=== PATIENT | female | born 2000 | race Caucasian/White ===

== ENCOUNTER → 2024-06-14 06:52 | Outpatient (REF) | payer OTHER, SELFPAY | LOC: RAD 06:52 | PROVIDERS: ATTENDING PHYSICIAN Nurse Practitioner Family | DX: R74.01 Elevation of levels of liver transaminase levels (principal) | CPT/HCPCS: 76700 ==

== ENCOUNTER 2024-12-12 12:47 | Emergency (ER) | payer OTHER, SELFPAY ==
[2024-12-12 12:49] VITALS: BP 141/99
--- NOTE | 2024-12-12 13:14 | ED.GENMED ---
History of Present Illness
General
Chief Complaint: Skin Problem
Source: patient
Exam Limitations: none
Time Seen by Provider: 12/12/24 13:02
History of Present Illness
History of Present Illness:
24-year-old female bit by a guinea pig to her right index finger yesterday afternoon about 3 PM. Went to urgent care. Started Augmentin x 2. Recheck today with concern for tenosynovitis. 2 doses of Augmentin. Last tetanus unknown
Past History
Past History
ED Past Medical History: Psychiatric (Anxiety)
Social History
Tobacco: Non-smoker
Alcohol: None
Drug: None
Review of Systems
Review of Systems
All Other Systems: Not applicable
Constitutional: Denies fever
Phy Exam
Physical Exam
Physical Exam:
General: Nontoxic appearing in no distress
Skin: Warm and dry, no rash
Neuro: Alert, nontoxic, grossly nonfocal
Psychiatric: Good eye contact and appropriate
Musculoskeletal: Puncture wound to the right index finger at the middle phalanx. Mild swelling. Mild erythema towards the proximal phalanx on the volar aspect. Pain with flexion and extension. Dorsally the finger however appears well.
Course
Orders/Labs/Results
Orders:
Orders
12/12/24 13:13
Tetanus/Diphth/Acelpertussis [Adacel] 0.5 ml IM .ONCE ONE
Finger(s)/Thumb 2 View Rt [CR Finger(s)/thumb Min 2 Vw Rt] Urgent
Comment:
Reason For Exam: Right index finger bite
12/12/24 13:21
Ampicillin/Sulbactam 3 G [Unasyn] 3 gm 0.9% Sodium Chloride 100 ml [Nss] 100 ml IV NOW
12/12/24 13:52
Aluminium Finger Splint Right ONCE
Vital Signs
Initial and Last Documented VS:
Initial Vital Signs
Temp Pulse Resp BP Pulse Ox
98.1 F 105 16 141/99 100
12/12/24 12:49 12/12/24 12:49 12/12/24 12:49 12/12/24 12:49 12/12/24 12:49
Last Documented Vital Signs
Temp Pulse Resp BP Pulse Ox
98.1 F 105 16 141/99 100
12/12/24 12:49 12/12/24 12:49 12/12/24 12:49 12/12/24 12:49 12/12/24 12:49
*Radiology
Radiology exam reviewed: preliminary read by ED provider (Negative x-ray.)
*Critical Care Note
Total Time (30-74mins, 75-104mins- exclusive of procedures): Not Applicable
Update Note
Update Note:
Discussed with hand surgeon who will evaluate tomorrow.
ED Attending Note
-
Portions of this chart may have been created with voice recognition software.� Occasional wrong word or��sound alike� substitutions may have occurred due to the inherent limitations of voice recognition software.
Discharge Plan
Departure
Patient Disposition: Home (Routine Discharge)
Date of Disposition: 12/12/24
Time of Disposition: 14:23
Patient with high blood pressure during this ER visit?: Yes
Discharge Problem:
Guinea pig bite right index finger
Instructions: Animal and human bites, BLOOD PRESSURE
Prescriptions:
No Action
Dupixent Syringe 300 mg/2 mL syringe
300 mg SC Q2W
amoxicillin-pot clavulanate [Augmentin] 875-125 mg Tablet
1 tab PO BID
Rx Instructions:
start on 12/11/24 for 5 days
hydroxyzine HCl 50 mg Tablet
50 mg PO Q6HPRN PRN (Reason: anixety)
Nurtec ODT 75 mg Tablet,Disintegrating
75 mg PO DAILYPRN PRN (Reason: mirgraines)
acetaminophen [Tylenol] 325 mg Tablet
650 mg PO Q6HPRN PRN (Reason: mild pain)
Referrals:
Kelin Coy CRNP [Family Provider, Family Practice]
Mateus Araiza MD [Active, Orthopedics] - Tomorrow
Activity Restrictions/Additional Instructions:
Take the antibiotic tonight and tomorrow morning
As we discussed, return sooner with increased swelling redness of the hand fever. Otherwise get rechecked tomorrow morning by Dr. Araiza.
Also as we discussed, any change in animal behavior of the guinea pig needs evaluation immediately and you would need to start rabies vaccine
Interventions
Interventions:
*Risk Screen - Suicide Last Done: 12/12/24 12:49
*General Assessment Last Done: 12/12/24 12:57
*Neglect/Abuse Screening Last Done: 12/12/24 12:49
*ED- Fall Risk Assessment Last Done: 12/12/24 12:57
*ED COVID-19 Vaccine History Last Done: 12/12/24 12:57
*Nursing Disposition Last Done: 12/12/24 14:58
ED-Skin Assessment Last Done: 12/12/24 12:57
Discharge Date and Time
Discharge Date/Time: 12/12/24 15:00
Print Language: FIJIAN
[2024-12-12] MEDS: UNASYN IV (14:14)
[2024-12-12] MEDS: ADACEL 0.5 ML IM (14:48)
== END 2024-12-12 15:00 | disposition home or self-care (01) ==
LOC: EMR 12:47
PROVIDERS: EMERGENCY PHYSICIAN Emergency Medicine; FAMILY PHYSICIAN Nurse Practitioner Family
DX: S61.230A Puncture wound without foreign body of right index finger without damage to nail, initial encounter (principal); W55.41XA Bitten by pig, initial encounter; Z23 Encounter for immunization
CPT/HCPCS: 96374; 90471; 99284; 73140; 90715